=== PATIENT | female | born 1965 ===

== ENCOUNTER 2017-10-05 14:30 | Emergency (ER) | payer OTHER ==
[2017-10-05 14:38] VITALS: RESP 18
[2017-10-05] MEDS ORDERED: diaZEpam 10 mg/2 ml Inj IVP STA (14:52)
[2017-10-05] MEDS ORDERED: HYDROmorphone 1 mg/ml ISec IVP STA (14:52)
[2017-10-05] MEDS ORDERED: HYDROmorphone 1 mg/ml ISec ONE (14:57)
--- NOTE | 2017-10-05 16:16 | C.PDOC ---
History Of Present Illness 52 year old female is brought to the ED via EMS for evaluation of severe back pain which began prior to arrival. Patient [place] the [place] and tried to open a door while lifting something heavy simultaneously. Patient suddenly felt a "crack" in her back and felt like she pulled something and had a spasm. Patient notes she experiencing similar symptoms around 2 years ago and was given Cortisone shot by her doctor, from which she was able to find significant relief. Patient denies neck pain, direct trauma/injury to her back, urinary/ bowel incontinence, extremity numbers/weakness. Time Seen by Provider: 10/05/17 14:48 Chief Complaint (Nursing): Back Pain History Per: Patient, EMS History/Exam Limitations: no limitations Onset/Duration Of Symptoms: Hrs, Sudden Onset Current Symptoms Are (Timing): Still Present Quality Of Discomfort: "Pain" Severity: Severe Previous Symptoms: Back Pain. denies: Neck Pain Associated Symptoms: denies: Incontinence, New Weakness, New Numbness Additional History Per: Patient, EMS Past Medical History Reviewed: Historical Data, Nursing Documentation, Vital Signs Vital Signs: Last Vital Signs Temp 98.1 F 10/05/17 16:27 Pulse 75 10/05/17 16:27 Resp 18 10/05/17 16:27 BP 119/71 10/05/17 16:27 Pulse Ox 98 10/05/17 21:13 - Medical History PMH: No Chronic Diseases Surgical History: No Surg Hx Family History: States: Unknown Family Hx - Social History Hx Alcohol Use: No Hx Substance Use: No - Immunization History Hx Tetanus Toxoid Vaccination: No Hx Influenza Vaccination: No Hx Pneumococcal Vaccination: No Review Of Systems Genitourinary: Negative for: Incontinence Musculoskeletal: Positive for: Back Pain. Negative for: Neck Pain Neurological: Negative for: Weakness, Numbness Physical Exam - Physical Exam Appears: Non-toxic, Other (in painful distress, crying due to pain ) Skin: Normal Color, Warm, Dry Head: Atraumatic, Normacephalic Eye(s): bilateral: Normal Inspection Oral Mucosa: Moist Neck: Supple Back: No Vertebral Tenderness, Decreased ROM (secondary to pain ), No Paraspinal Tenderness Extremity: Normal ROM, Capillary Refill (less than 2 seconds ) Neurological/Psych: Oriented x3, Normal Speech, Normal Cognition Gait: Unable To Assess ED Course And Treatment O2 Sat by Pulse Oximetry: 98 (on RA) Pulse Ox Interpretation: Normal Progress Note: Dilaudid IVP, Toradol IVP, and Valium PO administered. On reassessment, patient is resting comfortably, showing no signs of distress and reports an improvement in her symptoms. Patient is now ambulatory in the ED without distress and continues to deny urinary/bowel incontinence, extremity numbness/weakness, and has no concerning symptoms at this time. Patient is stable for discharge and is able to walk out of the ED without distress. She is advised to follow up with her PMD within 1-2 days for further evaluation and/or return to the ED if symptoms return or worsen. Reassessment Condition: Improved Disposition - Disposition Disposition: HOME/ ROUTINE Disposition Time: 16:12 Condition: STABLE Additional Instructions: Follow up with PMD within 1-2 days. Return to ED if feel worse. Prescriptions: Lidocaine 5% [Lidoderm] 1 patch TP DAILY #30 patch Ibuprofen [Motrin Tab] 600 mg PO Q8 #30 tab oxyCODONE/Acetaminophen [Percocet 5/325 mg Tab] 1 tab PO QID PRN #20 tab PRN Reason: Pain diaZEpam [Valium] 2 mg PO TID #15 tab Instructions: Acute Low Back Pain (ED) Forms: Accompanied To ED By:, [employer] ([email or web address]), Work Excuse - Clinical Impression Clinical Impression: Low back pain - PA / SHOWER MAID / Resident Statement MD/DO has reviewed & agrees with the documentation as recorded. - Scribe Statement The provider has reviewed the documentation as recorded by the Scribe (Aydee Meng) All medical record entries made by the Scribe were at my direction and personally dictated by me. I have reviewed the chart and agree that the record accurately reflects my personal performance of the history, physical exam, medical decision making, and the department course for this patient. I have also personally directed, reviewed, and agree with the discharge instructions and disposition.
[2017-10-05 16:28] VITALS: BP 119/71; PULSE 75; TEMP 98.1
[2017-10-05 21:08] VITALS: O2SAT 98
== END 2017-10-05 16:30 | disposition home or self-care (01) ==
LOC: C.ER 14:30
DX: M54.5 Low back pain (principal)
CPT/HCPCS: 96374; 96375; 99284; J1170; J1885